=== PATIENT | male | born 1970 | race Caucasian/White ===

== ENCOUNTER 2016-10-25 17:02 | Emergency (ER) | payer BC, OTHER ==
[~2016-10-25] VITALS: Ht 180.3 cm; Wt 89.6 kg
[~2016-10-25 17:02] MED LIST: CALCTAB5 PO; CHOL100010 PO; CIPR-255 PO; IBUP-1050 PO; MULT-506 PO; OMEG10007 PO; ONDA4TAB7 SL; VITA100C4 PO
[2016-10-25 17:06] VITALS: TEMP 36.6
[2016-10-25] MEDS ORDERED: SODIUM CHLORIDE 0.9% 1000ML 1,000 ML IV STA (17:34)
[2016-10-25 17:36] VITALS: Ht 180.3 cm; Wt 89.6 kg
[2016-10-25] MEDS ORDERED: CHOL1000 PO (17:38)
[2016-10-25] MEDS ORDERED: VITA400C3 PO (17:38)
[2016-10-25 17:49] VITALS: O2SAT 96
[2016-10-25 17:56] LABS: BASO ABS # 0.07 K/uL (0-0.2); COMPLETE YES; EOS % 5.4 %; HEMATOCRIT 43.4 % (42-52); IG% 0.1 %; LYMPH % 36.1 %; MEAN CELL VOLUME 86.6 fL (80-100); MEAN CORPUSCULAR HEMOGLOBIN 29.1 pg (25-34); MEAN CORPUSCULAR HGB CONC 33.6 g/dl (32-36); MEAN PLATELET VOLUME 10.1 fL (7.4-10.4); MONO % 10.7 %; NEUT % 46.7 %; PLATELET COUNT 318 K/uL (130-400); RED BLOOD COUNT 5.01 M/uL (4.7-6.1); WHITE BLOOD COUNT 7.21 K/uL (4.8-10.8)
--- NOTE | 2016-10-25 17:56 | DIAGNOSTIC IMAGING REPORT ---
CHEST ONE VIEW PORTABLE HISTORY: 46 years-old Male EVALUATE ALTERED MENTAL STATUS/WEAKNESS COMPARISON: None available TECHNIQUE: Portable upright AP view of the chest FINDINGS: Cardiomediastinal and hilar silhouettes are within normal limits. There is no pneumothorax, pleural effusion, focal airspace consolidation or overt pulmonary edema. The bones appear to be grossly intact. IMPRESSION: No acute cardiopulmonary process. The above report was generated using voice recognition software. It may contain grammatical, syntax or spelling errors. Electronically signed by: Julien Johnson M.D. 10/25/2016 5:55 PM Dictated Date/Time: 10/25/2016 5:54 PM
[2016-10-25 17:59] LABS: URINE APPEARANCE CLEAR (CLEAR); URINE BILIRUBIN NEG (NEG); URINE COLOR YELLOW; URINE NITRITE NEG (NEG); URINE SPECIFIC GRAVITY 1.012 (1.000-1.030); UROBILINOGEN NEG (NEG)
[2016-10-25 18:00] LABS: MANUAL MICROSCOPIC REQUIRED? NO; REVIEW REQ? NO
[2016-10-25 18:07] LABS: PROTHROMBIN TIME (PATIENT) 10.3 SECONDS (9.0-12.0)
--- NOTE | 2016-10-25 18:15 | DIAGNOSTIC IMAGING REPORT ---
HEAD WITHOUT CONTRAST (CT) CT DOSE: 729.78 mGycm HISTORY: Mental status change EVALUATE ALTERED MENTAL STATUS/WEAKNESS TECHNIQUE: Multiaxial CT images of the head were performed without the use of intravenous contrast. A dose lowering technique was utilized adhering to the principles of ALARA. Comparison: None. Findings: The paranasal sinuses and mastoid air cells are clear. The calvarium and skull base are intact. The ventricles and sulci are within normal limits. There is no mass, hematoma, midline shift, or acute infarct. Impression: No acute intracranial abnormality. The above report was generated using voice recognition software. It may contain grammatical, syntax or spelling errors. Electronically signed by: James Elder M.D. 10/25/2016 6:14 PM Dictated Date/Time: 10/25/2016 6:13 PM
[2016-10-25 18:17] LABS: AST/SGOT 21 U/L (15-37); BLOOD UREA NITROGEN 14 mg/dl (7-18); BUN/CREATININE RATIO 12.5 (10-20); CALCIUM 8.9 mg/dl (8.5-10.1); CARBON DIOXIDE 29 mmol/L (21-32); CHLORIDE 107 mmol/L (98-107); GLUCOSE 86 mg/dl (70-99); MAGNESIUM 2.3 mg/dl (1.8-2.4); POTASSIUM 3.9 mmol/L (3.5-5.1); SODIUM 143 mmol/L (136-145)
[2016-10-25 18:29] LABS: ALKALINE PHOSPHATASE 83 U/L (45-117); ALT/SGPT 48 U/L (12-78); CKMB/CK RATIO 0.9 (0-3.0); THYROID STIMULATING HORMONE 0.551 uIu/ml (0.300-4.500)
[2016-10-25 20:08] VITALS: BP 120/76; PULSE 64; O2SAT 98
--- NOTE | 2016-10-25 21:00 | EMERGENCY ROOM VISIT NOTE ---
History Report prepared by Viet: Bernice Vences Under the Supervision of: Dr. Chiki Watson D.O. First contact with patient: 17:31 Chief Complaint: DIZZY Stated Complaint: DIZZY;BLURRED VISION;TINGLING ARMS Nursing Triage Summary: Patient reports "I stood up while I was at work and got extremely dizzy, normally it goes away but I still feel dizzy." Patient reports "I feel off and my head feels fuzzy," Patient denies injury to his head and denies headache. History of Present Illness The patient is a 46 year old male who presents to the Emergency Room with complaints of persistent dizziness starting 1 hour ago. The patient was at work. He stood up and suddenly started feeling dizzy and faint. His dizziness is relieved by lying down. He has not experienced this dizziness before. He reports fatigue, headache, chest tightness, SOB, and tingling in his arms. He has felt some squeezing palpitations when he is stressed. He states that he is not feeling himself. His states that he seems to be having trouble answering questions. He denies any nausea, vomiting, fever, chills, cough, or other symptoms. He notes that he has been under increased stress recently. He has not been sleeping well, getting 3-4 hours a night for the past week. He has been eating normally, but drinking less water than usual. He denies any recent travel or sick contacts. He denies any history of medical problems or surgery. He admits to occasional alcohol use. He denies any tobacco use. Source of History: patient, spouse/significant other Onset: 1 hour ago Position: other (global) Quality: other (dizziness) Timing: other (persistent) Modifying Factors (Relieving): other (lying down) Associated Symptoms: + headache, + chest pain, + SOB, + fatigue, No fevers, No chills, No cough, No nausea, No vomiting Note: Pt reports palpitations, tingling in arms. Review of Systems See HPI for pertinent positives & negatives. A total of 10 systems reviewed and were otherwise negative. Past Medical & Surgical Medical Problems: (1) No known problems Family History Diabetes mellitus Social History Smoking Status: Never Smoker Alcohol Use: occasionally Drug Use: none Marital Status: Housing Status: lives with family Occupation Status: employed Current/Historical Medications Scheduled Cholecalciferol (Vitamin D3), 1,000 INTER.UNIT PO DAILY Fish Oil (Goodwell-3), 1 CAP PO DAILY Multivitamin (Multivitamin), 1 TAB PO DAILY Vitamin E (Vitamin E 400 Iu), 400 INTER.UNIT PO DAILY Allergies Coded Allergies: No Known Allergies (Unverified Allergy, Mild, 06/29/07) Physical Exam Vital Signs Date Time Temp Pulse Resp B/P (MAP) Pulse Ox O2 Delivery O2 Flow Rate FiO2 10/25/16 20:08 64 16 120/76 98 10/25/16 18:53 70 16 123/79 98 Room Air 10/25/16 18:42 66 18 107/67 97 Room Air 71 120/78 70 124/79 10/25/16 17:49 96 Room Air 10/25/16 17:28 69 10/25/16 17:06 36.6 76 16 144/89 96 Room Air Physical Exam GENERAL: Patient is awake, but tired appearing, does not appear to be anxious or uncomfortable. EYES: The conjunctivae are clear. The pupils are round and reactive. EARS, NOSE, MOUTH AND THROAT: The nose is without any evidence of any deformity. Mucous membranes are moist tongue is midline NECK: The neck is nontender and supple. RESPIRATORY: Normal respiratory effort is noted there is no evidence of wheezing rhonchi or rales CARDIOVASCULAR: Regular rate and rhythm noted there no murmurs rubs or gallops normal S1 normal S2 GASTROINTESTINAL: The abdomen is soft. Bowel sounds are present in all quadrants. Abdomen is nontender MUSCULOSKELETAL/EXTREMITIES: There is no evidence of gross deformity full range of motion is noted in the hips and shoulders SKIN: There is no obvious evidence of any rash. There are no petechiae, pallor or cyanosis noted. NEUROLOGIC: Patient is awake alert and oriented x3 strength is symmetric patellar reflexes are 2+ bilaterally Medical Decision & Procedures ER Provider Diagnostic Interpretation: X-ray results as stated below per interpretation by me and the radiologist. Radiology results as stated below per my review and radiologist interpretation: CHEST ONE VIEW PORTABLE HISTORY: 46 years-old Male EVALUATE ALTERED MENTAL STATUS/WEAKNESS COMPARISON: None available TECHNIQUE: Portable upright AP view of the chest FINDINGS: Cardiomediastinal and hilar silhouettes are within normal limits. There is no pneumothorax, pleural effusion, focal airspace consolidation or overt pulmonary edema. The bones appear to be grossly intact. IMPRESSION: No acute cardiopulmonary process. The above report was generated using voice recognition software. It may contain grammatical, syntax or spelling errors. Electronically signed by: Julien Johnson M.D. 10/25/2016 5:55 PM Dictated Date/Time: 10/25/2016 5:54 PM HEAD WITHOUT CONTRAST (CT) CT DOSE: 729.78 mGycm HISTORY: Mental status change EVALUATE ALTERED MENTAL STATUS/WEAKNESS TECHNIQUE: Multiaxial CT images of the head were performed without the use of intravenous contrast. A dose lowering technique was utilized adhering to the principles of ALARA. Comparison: None. Findings: The paranasal sinuses and mastoid air cells are clear. The calvarium and skull base are intact. The ventricles and sulci are within normal limits. There is no mass, hematoma, midline shift, or acute infarct. Impression: No acute intracranial abnormality. The above report was generated using voice recognition software. It may contain grammatical, syntax or spelling errors. Electronically signed by: James Elder M.D. 10/25/2016 6:14 PM Dictated Date/Time: 10/25/2016 6:13 PM Laboratory Results 10/25/16 17:45 Red Blood Count 5.01, Mean Corpuscular Volume 86.6, Mean Corpuscular Hemoglobin 29.1, Mean Corpuscular Hemoglobin Concent 33.6, Mean Platelet Volume 10.1, Neutrophils (%) (Auto) 46.7, Lymphocytes (%) (Auto) 36.1, Monocytes (%) (Auto) 10.7, Eosinophils (%) (Auto) 5.4, Basophils (%) (Auto) 1.0, Neutrophils # (Auto ) 3.37, Lymphocytes # (Auto) 2.60, Monocytes # (Auto) 0.77, Eosinophils # (Auto ) 0.39, Basophils # (Auto) 0.07 10/25/16 17:45 Test 10/25/16 17:45 White Blood Count 7.21 K/uL (4.8-10.8) Red Blood Count 5.01 M/uL (4.7-6.1) Hemoglobin 14.6 g/dL (14.0-18.0) Hematocrit 43.4 % (42-52) Mean Corpuscular Volume 86.6 fL (80-100) Mean Corpuscular Hemoglobin 29.1 pg (25-34) Mean Corpuscular Hemoglobin Concent 33.6 g/dl (32-36) Platelet Count 318 K/uL (130-400) Mean Platelet Volume 10.1 fL (7.4-10.4) Neutrophils (%) (Auto) 46.7 % Lymphocytes (%) (Auto) 36.1 % Monocytes (%) (Auto) 10.7 % Eosinophils (%) (Auto) 5.4 % Basophils (%) (Auto) 1.0 % Neutrophils # (Auto) 3.37 K/uL (1.4-6.5) Lymphocytes # (Auto) 2.60 K/uL (1.2-3.4) Monocytes # (Auto) 0.77 K/uL (0.11-0.59) Eosinophils # (Auto) 0.39 K/uL (0-0.5) Basophils # (Auto) 0.07 K/uL (0-0.2) RDW Standard Deviation 45.0 fL (36.4-46.3) RDW Coefficient of Variation 14.5 % (11.5-14.5) Immature Granulocyte % (Auto) 0.1 % Immature Granulocyte # (Auto) 0.01 K/uL (0.00-0.02) Prothrombin Time 10.3 SECONDS (9.0-12.0) Prothromb Time International Ratio 1.0 (0.9-1.1) Activated Partial Thromboplast Time 24.7 SECONDS (21.0-31.0) Partial Thromboplastin Ratio 1.0 Urine Color YELLOW Urine Appearance CLEAR (CLEAR) Urine pH 7.0 (4.5-7.5) Urine Specific [place]ki 1.012 (1.000-1.030) Urine Protein NEG (NEG) Urine Glucose (UA) NEG (NEG) Urine Ketones NEG (NEG) Urine Occult Blood NEG (NEG) Urine Nitrite NEG (NEG) Urine Bilirubin NEG (NEG) Urine Urobilinogen NEG (NEG) Urine Leukocyte Esterase NEG (NEG) Anion Gap 7.0 mmol/L (3-11) Est Creatinine Clear Calc Drug Dose 87.4 ml/min Estimated GFR () 91.5 Estimated GFR (Non- 79.0 BUN/Creatinine Ratio 12.5 (10-20) Calcium Level 8.9 mg/dl (8.5-10.1) Magnesium Level 2.3 mg/dl (1.8-2.4) Total Bilirubin 0.3 mg/dl (0.2-1) Direct Bilirubin < 0.1 mg/dl (0-0.2) Aspartate Amino Transf (AST/SGOT) 21 U/L (15-37) Alanine Aminotransferase (ALT/SGPT) 48 U/L (12-78) Alkaline Phosphatase 83 U/L (45-117) Total Creatine Kinase 218 U/L (39-308) Creatine Kinase MB 1.9 ng/ml (0.5-3.6) Creatine Kinase MB Ratio 0.9 (0-3.0) Troponin I < 0.015 ng/ml (0-0.045) Total Protein 7.6 gm/dl (6.4-8.2) Albumin 4.0 gm/dl (3.4-5.0) Thyroid Stimulating Hormone (TSH) 0.551 uIu/ml (0.300-4.500) Laboratory results per my review. Medications Administered Medications (Trade) Dose Ordered Sig/Brett Route Start Time Stop Time Status Last Admin Dose Admin Sodium Chloride 1,000 ml @ 999 mls/hr Q1H1M STAT IV 10/25/16 17:34 10/25/16 18:34 DC 10/25/16 17:51 999 MLS/HR ECG Indication: other (dizziness) Rate (beats per minute): 64 Rhythm: normal sinus Findings: no ectopy, other (no acute ST segment abnormalities) Comparison ECG Date: no prior available ED Course 1731: The patient was evaluated in room B3B. A complete history and physical examination were performed. 1733: NSS 1000 ml @ 999 mls/hr IV. 1956: Upon reevaluation, the patient is resting comfortably. I discussed the results and treatment plan with him. He verbalized agreement of the treatment plan. He was discharged home. Medical Decision Prior records/ancillary studies reviewed and summarized above. Nursing notes reviewed. Additional history obtained from family. The patient's history was concerning for weakness. Differential diagnosis: Etiologies such as metabolic, infection, hypo/hyperglycemia, electrolyte abnormalities, cardiac sources, intracerebral event, toxicologic, neurologic, as well as others were entertained. The patient is a 46-year-old male who presented to the emergency department for an evaluation of generalized weakness and dizziness. The patient did not have any focal neurologic deficit. He also admits to having multiple stressors but I do not feels overall picture was consistent with anxiety at this time. I discussed the patient's laboratory and radiographic studies with him. He did not have any dysrhythmia while he was in the ER. He was treated with IV fluids in the emergency department. On subsequent reevaluation he was feeling much better. He was encouraged to rest and avoid any strenuous activity. He was also encouraged to call his primary care physician to schedule a follow-up appointment for further testing. He was also encouraged to return to the emergency department immediately if symptoms change worsen or the need arises. Medication Reconcilliation Current Medication List: was personally reviewed by me Blood Pressure Screening Patient's blood pressure: Normal blood pressure Blood pressure disposition: Did not require urgent referral Impression Primary Impression: Dizziness Additional Impression: Weakness Scribe Attestation The scribe's documentation has been prepared under my direction and personally reviewed by me in its entirety. I confirm that the note above accurately reflects all work, treatment, procedures, and medical decision making performed by me. Departure Information Dispostion Home / Self-Care Referrals Hernesto Connor M.D. (PCP) Forms HOME CARE DOCUMENTATION FORM, IMPORTANT VISIT INFORMATION Patient Instructions ED Weakness [place], [facility] Additional Instructions Call your family doctor in the morning to schedule a follow-up appointment. Rest and avoid any strenuous activity. Return to the emergency department immediately if symptoms change worsen or the need arises. Problem Qualifiers
== END 2016-10-25 20:09 | disposition home or self-care (01) ==
LOC: C.EDB 17:04
DX: R42 Dizziness and giddiness (principal); R53.1 Weakness; R53.83 Other fatigue; R51 Headache; R07.89 Other chest pain; R06.02 Shortness of breath; Z79.899 Other long term (current) drug therapy; Z83.3 Family history of diabetes mellitus